=== PATIENT | female | born 1960 | race Caucasian/White ===

== ENCOUNTER 2020-09-13 06:44 | Day surgery (SDC) | payer OTHER ==
[~2020-09-13] VITALS: Ht 157.5 cm; Wt 54.8 kg
[2020-09-13] MEDS ORDERED: OMEP20ER (07:17)
[2020-09-13] MEDS ORDERED: IRON18 MG (07:18)
[2020-09-13] MEDS ORDERED: MULTI-VITAMIN1 EAC2 (07:18)
[2020-09-13] MEDS ORDERED: EYE MULTIVITAM1 EAC1 (07:18)
== END 2020-09-13 08:35 | disposition home or self-care (01) ==
LOC: ORSCSDS 06:44
PROVIDERS: Internal Medicine Gastroenterology
PROC: 0DJ08ZZ Inspection of Upper Intestinal Tract, Via Natural or Artificial Opening Endoscopic (ICD-10-PCS; principal; 2020-09-13 08:00)
DX: R12 Heartburn (principal); K44.9 Diaphragmatic hernia without obstruction or gangrene; K21.9 Gastro-esophageal reflux disease without esophagitis; E78.5 Hyperlipidemia, unspecified; Z79.899 Other long term (current) drug therapy
CPT/HCPCS: J2405; J2704; J7120